=== PATIENT | female | born 1980 | race Hispanic/Latino ===

== ENCOUNTER 2017-08-01 22:11 | Emergency (ER) | payer OTHER ==
[~2017-08-01] VITALS: Ht 160 cm; Wt 64.3 kg
[~2017-08-01 22:11] MED LIST: MEDROL DOSEPAK4 MG PO; NO HOME MEDS; ULTRAM50 MG PO
[2017-08-02 02:07] LABS: MCH 29.7 PG (29.0-34.0); MCHC 33.5 G/DL (30.0-36.0); MCV 88.5 FL (83-99); MEAN PLAT.VOLUME 11.5 uM^3 (9.5-12.4); PLATELET COUNT 207 K/uL (156-360); RBC DIS.WIDTH-CV 12.9 % (11.8-14.6); RBC DIS.WIDTH-SD 41.8 % (39-53); RED BLOOD COUNT 3.84 M/uL (3.80-5.20); WHITE BLOOD COUNT 5.5 K/uL (4.1-10.2)
[2017-08-02 02:15] LABS: CHLORIDE 105 mEq/L (99-109); POTASSIUM 3.8 mEq/L (3.7-5.4); SODIUM 134 mEq/L (136-147)
[2017-08-02 02:17] LABS: GLUCOSE 109 mg/dL (70-99)
[2017-08-02 02:18] LABS: ANION GAP 7 MEQ/L (2-14)
[2017-08-02 02:21] LABS: GFR ESTIMATE (CALCULATED) > 59 mL/min/
[2017-08-02 02:22] LABS: UREA NITROGEN (BUN) 11 mg/dL (9-23)
[2017-08-02 02:29] LABS: TROP-I INTERPRETATION NEGATIVE; TROPONIN-I < 0.01 ng/mL (0.0-0.30)
[2017-08-02 02:30] LABS: QUANTITATIVE HCG < 4.0 MIU/ML
[2017-08-02] MEDS ORDERED: NAPROSYN500 MG PO (02:49)
[2017-08-02] MEDS ORDERED: FLEXERIL10 MG PO (02:49)
[2017-08-02 03:19] VITALS: BP 115/65
== END 2017-08-02 03:20 | disposition home or self-care (01) ==
LOC: TRA 22:11 → EME 22:11 → TRA 08-02 03:20
PROVIDERS: Physician Assistant
DX: S16.1XXA Strain of muscle, fascia and tendon at neck level, initial encounter (principal); S39.012A Strain of muscle, fascia and tendon of lower back, initial encounter; S30.1XXA Contusion of abdominal wall, initial encounter; S80.11XA Contusion of right lower leg, initial encounter; V48.5XXA Car driver injured in noncollision transport accident in traffic accident, initial encounter; Z88.6 Allergy status to analgesic agent
CPT/HCPCS: 70450; 71260; 72125; 72129; 72132; 73564; 73590; 74177; 80048; 84484; 84702; 85027; 93005; 99281; 99284; J2405; J3010